=== PATIENT | male | born 1955 | race Caucasian/White ===

== ENCOUNTER 2021-04-19 15:11 | Inpatient (IN) ==
[2021-04-19] MEDS ORDERED: D5% in Water 1,000 ML IVC PRN (20:35)
[2021-04-19] MEDS ORDERED: Dextrose Gel 15 GM/37.5 ML TUBE PO PRN ×2 (20:35)
[2021-04-19] MEDS ORDERED: *HR* Dextrose 50 % in Water (Vial) 50 ML VIAL IVP PRN (20:35)
[2021-04-19] MEDS: Lactobacillus 1 EACH CAP.SPRINK PO SCH (22:12)
[2021-04-19] MEDS: metroNIDAZOLE 500 MG TABLET PO SCH (22:12)
[2021-04-19] MEDS: *HR* OxyCODONE/APAP 10/325 TABLET PO PRN (22:12)
[2021-04-19] MEDS ORDERED: Insulin DETEMIR 100 UNIT/ML per UNIT SUBQ ONE (22:15)
[2021-04-20] MEDS ORDERED: [UNRECOGNIZED DRUG - OTHER] IV SCH
[2021-04-20] MEDS ORDERED: WATER FOR INJ IV SCH
[2021-04-20] MEDS ORDERED: VANCOMYCIN IV SCH
[2021-04-20] MEDS: *HR* OxyCODONE/APAP 10/325 TABLET PO PRN ×3 (04:36→21:07)
[2021-04-20] MEDS: *HR* Enoxaparin 40 MG/0.4 ML SYRINGE SQ SCH (05:05)
[2021-04-20 06:12] LABS: Basophils % 0.4 %; Eosinophils # 0.3 K/mcL (0.0-0.6); Eosinophils % 5.5 %; Hematocrit 32.5 % (37.5-50.1); Hemoglobin 10.3 g/dL (12.9-16.9); Immature Granulocytes % 0.4 % (0-4); Lymphocytes # 1.1 K/mcL (0.6-4.6); Lymphocytes % 20.1 %; Mean Corpuscular HGB Conc 31.7 g/dL (31.6-35.5); Mean Corpuscular Volume 88.3 fL (83.0-100.0); Mean Platelet Volume 8.5 fL (9.4-12.4); Monocytes # 0.5 K/mcL (0.0-1.3); Monocytes % 8.6 %; Neutrophils # 3.6 K/mcL (1.6-8.9); Platelet Count 268 K/mcL (140-400); Red Blood Count 3.68 M/mcL (4.19-5.50); Red Cell Distribution Width 13.8 % (11.5-14.5); White Blood Count 5.5 K/mcL (4.3-11.1)
[2021-04-20 06:36] LABS: BUN/Creatinine Ratio 33 (6-26); Blood Urea Nitrogen 20 mg/dL (8-23); Calcium 8.2 mg/dL (8.6-10.3); Carbon Dioxide 29 mEq/L (23-29); Chloride 100 mEq/L (98-107); Glucose 235 mg/dL (70-105); Osmolality,Calculated 286 (280-300); Potassium 4.2 mEq/L (3.5-5.1); Sodium 133 mEq/L (136-145); eGFR For African Americans > 60 (> 60); eGFR For Non-African Americans > 60 (> 60)
[2021-04-20] MEDS: levoFLOXacin 750 MG/150 ML 750 MG/150 ML BAG IVPB SCH (08:03)
[2021-04-20] MEDS: Furosemide 40 MG TABLET PO SCH (08:04)
[2021-04-20] MEDS: lisinopriL 5 MG TABLET PO SCH (08:04)
[2021-04-20] MEDS: Lactobacillus 1 EACH CAP.SPRINK PO SCH ×2 (08:04→21:07)
[2021-04-20] MEDS: metroNIDAZOLE 500 MG TABLET PO SCH ×3 (08:04→21:07)
[2021-04-20] MEDS: Aspirin 81 MG TAB.CHEW PO SCH (08:05)
[2021-04-20] MEDS: Metoprolol XL (24 HR) Succ 25 MG TAB.ER.24H PO SCH (08:05)
[2021-04-20] MEDS: Insulin DETEMIR 100 UNIT/ML X5UNITS SUBQ SCH ×2 (08:11→21:25)
[2021-04-20] MEDS: *HR* Metformin 500 MG TABLET PO SCH ×2 (08:11→17:32)
[2021-04-20] MEDS: Insulin LISPRO 300 UNITS/3 ML VIAL SUBQ SCH ×3 (08:25→16:51)
[2021-04-20] MEDS ORDERED: LEVOFLOXACIN 750 MG/150 ML IVPB SCH (09:00)
[2021-04-20] MEDS: Fluconazole 150 MG TABLET PO SCH (11:48)
[2021-04-21] MEDS: *HR* OxyCODONE/APAP 10/325 TABLET PO PRN ×4 (03:55→22:40)
[2021-04-21] MEDS: *HR* Enoxaparin 40 MG/0.4 ML SYRINGE SQ SCH (04:42)
[2021-04-21] MEDS: Aspirin 81 MG TAB.CHEW PO SCH (08:15)
[2021-04-21] MEDS: Furosemide 40 MG TABLET PO SCH (08:15)
[2021-04-21] MEDS: *HR* Metformin 500 MG TABLET PO SCH ×2 (08:16→18:40)
[2021-04-21] MEDS: Lactobacillus 1 EACH CAP.SPRINK PO SCH ×2 (08:16→22:38)
[2021-04-21] MEDS: Insulin DETEMIR 100 UNIT/ML X5UNITS SUBQ SCH ×2 (08:17→22:40)
[2021-04-21] MEDS: levoFLOXacin 750 MG/150 ML 750 MG/150 ML BAG IVPB SCH (08:17)
[2021-04-21] MEDS: Insulin LISPRO 300 UNITS/3 ML VIAL SUBQ SCH ×3 (08:30→18:37)
[2021-04-21] MEDS: metroNIDAZOLE 500 MG TABLET PO SCH ×3 (09:27→22:38)
[2021-04-21] MEDS: Metoprolol XL (24 HR) Succ 25 MG TAB.ER.24H PO SCH (09:28)
[2021-04-21] MEDS: lisinopriL 5 MG TABLET PO SCH (09:28)
[2021-04-22] MEDS: *HR* Enoxaparin 40 MG/0.4 ML SYRINGE SQ SCH (00:36)
[2021-04-22] MEDS: *HR* OxyCODONE/APAP 10/325 TABLET PO PRN ×3 (02:23→22:16)
[2021-04-22 07:36] LABS: Basophils % 0.5 %; Eosinophils # 0.3 K/mcL (0.0-0.6); Eosinophils % 5.5 %; Hematocrit 34.2 % (37.5-50.1); Hemoglobin 10.8 g/dL (12.9-16.9); Immature Granulocytes % 0.5 % (0-4); Lymphocytes # 1.8 K/mcL (0.6-4.6); Lymphocytes % 29.2 %; Mean Corpuscular HGB Conc 31.6 g/dL (31.6-35.5); Mean Corpuscular Hemoglobin 28.3 pg (28.0-33.3); Mean Corpuscular Volume 89.5 fL (83.0-100.0); Mean Platelet Volume 8.8 fL (9.4-12.4); Monocytes # 0.5 K/mcL (0.0-1.3); Monocytes % 8.2 %; Neutrophils # 3.4 K/mcL (1.6-8.9); Platelet Count 260 K/mcL (140-400); Red Blood Count 3.82 M/mcL (4.19-5.50); Red Cell Distribution Width 13.9 % (11.5-14.5); Segmented Neutrophils % 56.1 %; White Blood Count 6.1 K/mcL (4.3-11.1)
[2021-04-22 07:49] LABS: BUN/Creatinine Ratio 25 (6-26); Blood Urea Nitrogen 15 mg/dL (8-23); eGFR For African Americans > 60 (> 60); eGFR For Non-African Americans > 60 (> 60)
[2021-04-22] MEDS: Insulin LISPRO 300 UNITS/3 ML VIAL SUBQ SCH ×3 (08:18→17:30)
[2021-04-22] MEDS: Lactobacillus 1 EACH CAP.SPRINK PO SCH ×2 (08:19→20:09)
[2021-04-22] MEDS: levoFLOXacin 750 MG/150 ML 750 MG/150 ML BAG IVPB SCH (08:19)
[2021-04-22] MEDS: Metoprolol XL (24 HR) Succ 25 MG TAB.ER.24H PO SCH (08:19)
[2021-04-22] MEDS: *HR* Metformin 500 MG TABLET PO SCH ×2 (08:19→16:37)
[2021-04-22] MEDS: Aspirin 81 MG TAB.CHEW PO SCH (08:19)
[2021-04-22] MEDS: lisinopriL 5 MG TABLET PO SCH (08:20)
[2021-04-22] MEDS: Furosemide 40 MG TABLET PO SCH (08:20)
[2021-04-22] MEDS: metroNIDAZOLE 500 MG TABLET PO SCH ×3 (08:20→20:09)
[2021-04-22] MEDS: Simethicone 80 MG TAB.CHEW PO PRN (20:09)
[2021-04-22] MEDS: Insulin DETEMIR 100 UNIT/ML X5UNITS SUBQ SCH (22:29)
[2021-04-23] MEDS: *HR* Enoxaparin 40 MG/0.4 ML SYRINGE SQ SCH (00:38)
[2021-04-23] MEDS: *HR* OxyCODONE/APAP 10/325 TABLET PO PRN ×5 (02:26→23:52)
[2021-04-23] MEDS: lisinopriL 5 MG TABLET PO SCH (08:04)
[2021-04-23] MEDS: Insulin LISPRO 300 UNITS/3 ML VIAL SUBQ SCH ×3 (08:04→17:15)
[2021-04-23] MEDS: Furosemide 40 MG TABLET PO SCH (08:04)
[2021-04-23] MEDS: Aspirin 81 MG TAB.CHEW PO SCH (08:04)
[2021-04-23] MEDS: Metoprolol XL (24 HR) Succ 25 MG TAB.ER.24H PO SCH (08:05)
[2021-04-23] MEDS: metroNIDAZOLE 500 MG TABLET PO SCH ×3 (08:05→20:32)
[2021-04-23] MEDS: *HR* Metformin 500 MG TABLET PO SCH ×2 (08:05→16:15)
[2021-04-23] MEDS: Lactobacillus 1 EACH CAP.SPRINK PO SCH ×2 (08:06→20:32)
[2021-04-23] MEDS: levoFLOXacin 750 MG/150 ML 750 MG/150 ML BAG IVPB SCH (08:07)
[2021-04-23] MEDS: Insulin DETEMIR 100 UNIT/ML X5UNITS SUBQ SCH ×3 (09:35→20:41)
[2021-04-23] MEDS: Simethicone 80 MG TAB.CHEW PO PRN (20:32)
[2021-04-24] MEDS ORDERED: Vancomycin 500 MG in 0.9 % Sodium Chloride Mini Bag 100 ML IVPB ONE (01:00)
[2021-04-24] MEDS: *HR* Enoxaparin 40 MG/0.4 ML SYRINGE SQ SCH (02:09)
[2021-04-24] MEDS: *HR* OxyCODONE/APAP 10/325 TABLET PO PRN ×5 (04:42→23:14)
[2021-04-24 05:03] LABS: Hematocrit 33.3 % (37.5-50.1); Hemoglobin 10.8 g/dL (12.9-16.9); Mean Corpuscular HGB Conc 32.4 g/dL (31.6-35.5); Mean Corpuscular Hemoglobin 28.3 pg (28.0-33.3); Mean Corpuscular Volume 87.4 fL (83.0-100.0); Mean Platelet Volume 8.3 fL (9.4-12.4); Platelet Count 243 K/mcL (140-400); Red Blood Count 3.81 M/mcL (4.19-5.50); Red Cell Distribution Width 13.7 % (11.5-14.5); White Blood Count 6.6 K/mcL (4.3-11.1)
[2021-04-24 05:14] LABS: BUN/Creatinine Ratio 19 (6-26); Blood Urea Nitrogen 13 mg/dL (8-23); Calcium 8.5 mg/dL (8.6-10.3); Carbon Dioxide 29 mEq/L (23-29); Chloride 102 mEq/L (98-107); Glucose 102 mg/dL (70-105); Magnesium 1.5 mg/dL (1.6-2.6); Osmolality,Calculated 286 (280-300); Potassium 3.8 mEq/L (3.5-5.1); Sodium 138 mEq/L (136-145); Vancomycin,Trough 16 mcg/mL (5-10); eGFR For African Americans > 60 (> 60); eGFR For Non-African Americans > 60 (> 60)
[2021-04-24] MEDS: Metoprolol XL (24 HR) Succ 25 MG TAB.ER.24H PO SCH (09:04)
[2021-04-24] MEDS: Aspirin 81 MG TAB.CHEW PO SCH (09:04)
[2021-04-24] MEDS: Furosemide 40 MG TABLET PO SCH (09:04)
[2021-04-24] MEDS: levoFLOXacin 750 MG/150 ML 750 MG/150 ML BAG IVPB SCH (09:04)
[2021-04-24] MEDS: Lactobacillus 1 EACH CAP.SPRINK PO SCH ×2 (09:04→19:30)
[2021-04-24] MEDS: *HR* Metformin 500 MG TABLET PO SCH ×2 (09:05→16:50)
[2021-04-24] MEDS: Insulin DETEMIR 100 UNIT/ML X5UNITS SUBQ SCH ×2 (09:05→23:10)
[2021-04-24] MEDS: lisinopriL 5 MG TABLET PO SCH (09:05)
[2021-04-24] MEDS: metroNIDAZOLE 500 MG TABLET PO SCH ×3 (09:05→19:30)
[2021-04-24] MEDS: Insulin LISPRO 300 UNITS/3 ML VIAL SUBQ SCH ×3 (09:05→17:19)
[2021-04-24] MEDS: Vancomycin 1,250 MG/262.5 ML IV.SOLN IVPB SCH ×2 (09:27→16:49)
[2021-04-24 10:22] LABS: C-Reactive Protein < 5 mg/L (Less than 10)
[2021-04-24] MEDS: Simethicone 80 MG TAB.CHEW PO PRN ×2 (13:40→23:14)
[2021-04-24] MEDS: Ondansetron 4 MG/2 ML VIAL IVP PRN (19:29)
[2021-04-25] MEDS: Vancomycin 1,250 MG/262.5 ML IV.SOLN IVPB SCH ×3 (00:37→17:22)
[2021-04-25] MEDS: *HR* Enoxaparin 40 MG/0.4 ML SYRINGE SQ SCH (02:05)
[2021-04-25] MEDS: Ondansetron 4 MG/2 ML VIAL IVP PRN (04:22)
[2021-04-25] MEDS: *HR* OxyCODONE/APAP 10/325 TABLET PO PRN ×5 (04:23→22:31)
[2021-04-25] MEDS: levoFLOXacin 750 MG/150 ML 750 MG/150 ML BAG IVPB SCH (08:31)
[2021-04-25] MEDS: Simethicone 80 MG TAB.CHEW PO PRN (08:35)
[2021-04-25] MEDS: Insulin LISPRO 300 UNITS/3 ML VIAL SUBQ SCH ×3 (08:35→17:43)
[2021-04-25] MEDS: Lactobacillus 1 EACH CAP.SPRINK PO SCH ×2 (08:35→22:31)
[2021-04-25] MEDS: Furosemide 40 MG TABLET PO SCH (08:35)
[2021-04-25] MEDS: *HR* Metformin 500 MG TABLET PO SCH ×2 (08:35→17:21)
[2021-04-25] MEDS: Aspirin 81 MG TAB.CHEW PO SCH (08:36)
[2021-04-25] MEDS: lisinopriL 5 MG TABLET PO SCH (08:36)
[2021-04-25] MEDS: Metoprolol XL (24 HR) Succ 25 MG TAB.ER.24H PO SCH (08:36)
[2021-04-25] MEDS: metroNIDAZOLE 500 MG TABLET PO SCH ×3 (08:36→22:31)
[2021-04-25] MEDS: Insulin DETEMIR 100 UNIT/ML X5UNITS SUBQ SCH ×2 (08:36→22:31)
[2021-04-26] MEDS: Vancomycin 1,250 MG/262.5 ML IV.SOLN IVPB SCH ×4 (00:43→23:15)
[2021-04-26] MEDS: *HR* Enoxaparin 40 MG/0.4 ML SYRINGE SQ SCH (06:17)
[2021-04-26] MEDS: *HR* OxyCODONE/APAP 10/325 TABLET PO PRN ×4 (06:18→23:13)
[2021-04-26 06:37] LABS: BUN/Creatinine Ratio 21 (6-26); Blood Urea Nitrogen 13 mg/dL (8-23); Carbon Dioxide 29 mEq/L (23-29); Chloride 101 mEq/L (98-107); Glucose 157 mg/dL (70-105); Magnesium 1.6 mg/dL (1.6-2.6); Osmolality,Calculated 287 (280-300); Sodium 137 mEq/L (136-145); eGFR For African Americans > 60 (> 60); eGFR For Non-African Americans > 60 (> 60)
[2021-04-26] MEDS: Insulin LISPRO 300 UNITS/3 ML VIAL SUBQ SCH ×3 (07:54→17:32)
[2021-04-26] MEDS: Metoprolol XL (24 HR) Succ 25 MG TAB.ER.24H PO SCH (07:55)
[2021-04-26] MEDS: Aspirin 81 MG TAB.CHEW PO SCH (07:55)
[2021-04-26] MEDS: lisinopriL 5 MG TABLET PO SCH (07:55)
[2021-04-26] MEDS: *HR* Metformin 500 MG TABLET PO SCH ×2 (07:55→17:43)
[2021-04-26] MEDS: levoFLOXacin 750 MG/150 ML 750 MG/150 ML BAG IVPB SCH (07:55)
[2021-04-26] MEDS: Insulin DETEMIR 100 UNIT/ML X5UNITS SUBQ SCH ×2 (07:56→23:13)
[2021-04-26] MEDS: metroNIDAZOLE 500 MG TABLET PO SCH ×3 (07:56→23:13)
[2021-04-26] MEDS: Furosemide 40 MG TABLET PO SCH (07:56)
[2021-04-26] MEDS: Lactobacillus 1 EACH CAP.SPRINK PO SCH ×2 (07:56→23:13)
[2021-04-26] MEDS: Simethicone 80 MG TAB.CHEW PO PRN (13:09)
[2021-04-27] MEDS: *HR* Enoxaparin 40 MG/0.4 ML SYRINGE SQ SCH (06:20)
[2021-04-27] MEDS: *HR* OxyCODONE/APAP 10/325 TABLET PO PRN ×3 (06:21→21:42)
[2021-04-27] MEDS: lisinopriL 5 MG TABLET PO SCH (10:10)
[2021-04-27] MEDS: Metoprolol XL (24 HR) Succ 25 MG TAB.ER.24H PO SCH (10:10)
[2021-04-27] MEDS: Aspirin 81 MG TAB.CHEW PO SCH (10:10)
[2021-04-27] MEDS: metroNIDAZOLE 500 MG TABLET PO SCH ×3 (10:10→21:43)
[2021-04-27] MEDS: *HR* Metformin 500 MG TABLET PO SCH ×2 (10:10→17:42)
[2021-04-27] MEDS: Lactobacillus 1 EACH CAP.SPRINK PO SCH ×2 (10:10→21:43)
[2021-04-27] MEDS: Furosemide 40 MG TABLET PO SCH (10:11)
[2021-04-27] MEDS: Fluconazole 150 MG TABLET PO SCH (10:16)
[2021-04-27] MEDS: Insulin LISPRO 300 UNITS/3 ML VIAL SUBQ SCH ×3 (10:16→17:44)
[2021-04-27] MEDS: Vancomycin 1,250 MG/262.5 ML IV.SOLN IVPB SCH ×2 (10:16→18:09)
[2021-04-27] MEDS: Insulin DETEMIR 100 UNIT/ML X5UNITS SUBQ SCH ×2 (11:09→21:43)
[2021-04-27] MEDS: levoFLOXacin 750 MG/150 ML 750 MG/150 ML BAG IVPB SCH (11:54)
[2021-04-28] MEDS: Vancomycin 1,250 MG/262.5 ML IV.SOLN IVPB SCH ×3 (00:55→16:43)
[2021-04-28] MEDS: *HR* Enoxaparin 40 MG/0.4 ML SYRINGE SQ SCH (01:17)
[2021-04-28] MEDS: *HR* OxyCODONE/APAP 10/325 TABLET PO PRN ×3 (06:53→19:35)
[2021-04-28] MEDS: Insulin LISPRO 300 UNITS/3 ML VIAL SUBQ SCH ×3 (09:16→16:57)
[2021-04-28] MEDS: Aspirin 81 MG TAB.CHEW PO SCH (09:17)
[2021-04-28] MEDS: Lactobacillus 1 EACH CAP.SPRINK PO SCH ×2 (09:17→19:40)
[2021-04-28] MEDS: levoFLOXacin 750 MG/150 ML 750 MG/150 ML BAG IVPB SCH (09:17)
[2021-04-28] MEDS: metroNIDAZOLE 500 MG TABLET PO SCH ×3 (09:17→19:40)
[2021-04-28] MEDS: Furosemide 40 MG TABLET PO SCH (09:17)
[2021-04-28] MEDS: lisinopriL 5 MG TABLET PO SCH (09:18)
[2021-04-28] MEDS: Metoprolol XL (24 HR) Succ 25 MG TAB.ER.24H PO SCH (09:18)
[2021-04-28] MEDS: Insulin DETEMIR 100 UNIT/ML X5UNITS SUBQ SCH ×2 (09:18→19:40)
[2021-04-28] MEDS: *HR* Metformin 500 MG TABLET PO SCH ×2 (11:09→16:43)
[2021-04-28 20:40] VITALS: RESP 16
[2021-04-29] MEDS: *HR* Enoxaparin 40 MG/0.4 ML SYRINGE SQ SCH (05:23)
[2021-04-29 06:59] VITALS: BP 124/69; PULSE 69; TEMP 97.6; O2SAT 97
[2021-04-29] MEDS: *HR* OxyCODONE/APAP 10/325 TABLET PO PRN ×2 (07:00→11:51)
[2021-04-29 08:23] LABS: Basophils # 0.1 K/mcL (0.0-0.2); Basophils % 0.7 %; Eosinophils # 0.4 K/mcL (0.0-0.6); Hematocrit 38.5 % (37.5-50.1); Hemoglobin 12.3 g/dL (12.9-16.9); Immature Granulocytes % 0.3 % (0-4); Lymphocytes % 28.1 %; Mean Corpuscular HGB Conc 31.9 g/dL (31.6-35.5); Mean Corpuscular Volume 87.7 fL (83.0-100.0); Mean Platelet Volume 8.3 fL (9.4-12.4); Monocytes # 0.5 K/mcL (0.0-1.3); Monocytes % 6.4 %; Neutrophils # 4.1 K/mcL (1.6-8.9); Platelet Count 307 K/mcL (140-400); Red Blood Count 4.39 M/mcL (4.19-5.50); Red Cell Distribution Width 14.4 % (11.5-14.5); Segmented Neutrophils % 58.5 %
[2021-04-29 08:41] LABS: eGFR For African Americans > 60 (> 60); eGFR For Non-African Americans > 60 (> 60)
[2021-04-29] MEDS: Furosemide 40 MG TABLET PO SCH (09:44)
[2021-04-29] MEDS: Lactobacillus 1 EACH CAP.SPRINK PO SCH (09:45)
[2021-04-29] MEDS: *HR* Metformin 500 MG TABLET PO SCH (09:45)
[2021-04-29] MEDS: Metoprolol XL (24 HR) Succ 25 MG TAB.ER.24H PO SCH (09:45)
[2021-04-29] MEDS: metroNIDAZOLE 500 MG TABLET PO SCH (09:45)
[2021-04-29] MEDS: lisinopriL 5 MG TABLET PO SCH (09:46)
[2021-04-29] MEDS: Aspirin 81 MG TAB.CHEW PO SCH (09:46)
[2021-04-29] MEDS: levoFLOXacin 750 MG/150 ML 750 MG/150 ML BAG IVPB SCH (09:46)
[2021-04-29] MEDS: Insulin DETEMIR 100 UNIT/ML X5UNITS SUBQ SCH (09:47)
[2021-04-29] MEDS: Vancomycin 1,250 MG/262.5 ML IV.SOLN IVPB SCH ×2 (09:58)
[2021-04-29] MEDS: Insulin LISPRO 300 UNITS/3 ML VIAL SUBQ SCH ×2 (09:58→11:45)
== END 2021-04-29 12:30 | disposition left against medical advice (07) | DRG 638 ==
LOC: INPGRE 20:23
PROVIDERS: ADMIT Family Medicine; ATTEND Family Medicine